=== PATIENT | female | born 1955 | race Caucasian/White ===

== ENCOUNTER 2018-08-18 06:45 | Emergency (ER) | payer MEDICARE, OTHER ==
[2018-08-18] MEDS: IBUPROFEN 800 MG TAB PO (07:19)
[2018-08-18] MEDS: ACETAMINOPHEN 500 MG TAB PO (07:20)
[2018-08-18 07:32] LABS: ADD UMIC YES; UR ASCORBIC ACID NEGATIVE (NEGATIVE); UR BILIRUBIN (Dip) NEGATIVE (NEGATIVE); UR BLOOD (Dip) 2+ mg/dL (NEGATIVE); UR CLARITY SLIGHTLY CLOUDY (CLEAR); UR COLOR AMBER (YELLOW); UR GLUCOSE (Dip) NEGATIVE (NEGATIVE); UR KETONES (Dip) TRACE mg/dL (NEGATIVE); UR LEUKOCYTE ESTERASE (Dip) NEGATIVE Leu/ul (NEGATIVE); UR MUCUS FEW /HPF (NONE SEEN); UR NITRITE (Dip) NEGATIVE (NEGATIVE); UR RBC 15 /HPF (0-5); UR TOTAL PROTEIN (Dip) 1+ mg/dl (NEGATIVE); UR UROBILINOGEN (Dip) 2+ mg/dL (NEGATIVE); UR WBC 2 /HPF (0-5)
== END 2018-08-18 08:09 | disposition home or self-care (01) ==
LOC: FTE 06:45
DX: B34.9 Viral infection, unspecified (principal)
CPT/HCPCS: 71045; 81001; 87400; 99284-25